=== PATIENT | female | born 1960 | race Caucasian/White ===

== ENCOUNTER 2016-11-13 09:20 | Day surgery (SDC) | payer OTHER ==
[~2016-11-13] VITALS: Ht 167.6 cm; Wt 53.0 kg
[~2016-11-13 09:20] MED LIST: 0.9% Sodium Chloride 1,000 ML IV SCH; ACLI400A2 IH; BECL8.7A6 INHALATION; ROPI0.5T2 PO; SALM50DI IH; Sodium Chloride LOK Flush 10 mL Syringe IV PRN; fentaNYL-PF 50 mCg/mL 2 mL Inj IVPUSH PRN
[2016-11-13 09:39] VITALS: BP 136/82; PULSE 66; RESP 16; O2SAT 97
[2016-11-13] MEDS ORDERED: MELO7.5O PO (09:39)
[2016-11-13] MEDS ORDERED: PRE10 PO (09:39)
--- NOTE | 2016-11-13 10:50 | PCM.ENDCOL ---
Colonoscopy Date of Service: Nov 13, 2016 Physician Toi Garcia MD Pre Procedure Diagnosis: Screening Post Procedure Dx & Findings: Polyp hemorrhoids distal proctitis Procedure Colonoscopy PROCEDURE IN DETAIL: Prep adequate Withdrawal time 12 minutes After unremarkable rectal examination the Olympus video colonoscope was inserted patient's anal canal and was advanced to cecum. Landmarks were identified including the ileocecal valve and appendiceal orifice. Scope was withdrawn systematically. Visualized colonic mucosa showed healthy shiny mucosa with normal healthy-appearing vasculature. In the ascending colon, there was a 1 mm polyp structure which was removed completing cold forceps. In the rectum, there were 2 polyps near the hemorrhoid. One was 1 cm polyp and the other one was about 6 mm polyp. Both were resected completely using hot snare. Also during retroflexion, we noted distal proctitis. The mucosa showed superficial ulceration and edema and redness. Biopsies obtained. In the rectum retroflexion was done which showed hemorrhoids. Anal canal was inspected carefully on the way out and hemorrhoids noted. Impression Polyps 3 status post complete removal. Largest polyp was 1 cm. Distal proctitis Hemorrhoids Recommendation Repeat colonoscopy 3 years Await biopsy Presedation Assessment Risks and Benefits Informed consent was obtained from the patient after all risks and benefits including but not limited to drug reaction, infection, pain, bleeding, perforation, as well as alternatives were discussed. Patient monitoring Continuous pulse oximetry, cardiac monitoring, blood pressure monitoring, IV access, and oxygen at 2L per nasal cannula. Periprocedural Fentanyl: Fentanyl 100mcg Incrementally Midazolam: Midazolam 4mg Incrementally Complications There were no periprocedural complications identified. Post Procedure Plan Post Procedure Recommendations 1. Restrict activities today. 2. Resume normal activities in the morning. 3. Resume medications. 4. Patient informed of normal post procedure side effects as bloating, drowsiness, blood streaking in the stool. 5. average risk CRCS. If colon polyps come back as: -Hyperplastic- can repeat colonoscopy in 10 years -Tubular adenoma- repeat colonoscopy in 5 years -Tubulovillous/villous adenoma- repeat colonoscopy in 3 years -If any dysplasia- return to clinic as soon as possible 6. Please don't hesitate to call me with any questions. Toi Garcia MD Nov 13, 2016 10:50
[2016-11-13 10:52] VITALS: BP 129/92; PULSE 79; RESP 15; O2SAT 98
[2016-11-13 11:02] VITALS: BP 127/73; PULSE 77; RESP 16; O2SAT 99
[2016-11-13 11:12] VITALS: BP 133/66; PULSE 76; RESP 16; O2SAT 98
--- NOTE | 2016-11-14 10:32 | PATH ---
SURGICAL PATHOLOGY Attending Physician:Toi Garcia M.D. CASE STATUS: Signed Out PATIENT NAME: GRACIELA MEIER PID: [id number] : 1960 DATE COLLECTED:11/13/2016 20:54 SPECIMEN: 1: Colon, Biopsy 2: Rectum, Biopsy 3: Rectum, Biopsy CLINICAL HISTORY: 1). ASCENDING COLON POLYP 2). RECTAL POLYP X2 3). RECTAL BIOPSY FINAL DIAGNOSIS: 1.ASCENDING COLON POLYP: CHRONIC INFLAMMATION WITH FOCAL MUCOSAL SCARRING CONSISTENT WITH PREVIOUS MUCOSAL INJURY. Negative for dysplasia and malignancy. 2.RECTAL POLYPS: TUBULAR ADENOMA INVOLVING ALL THREE BIOPSY FRAGMENTS. 3.RECTAL BIOPSY: CHANGES OF CHRONIC ACTIVE PROCTITIS WITH CRYPTITIS, CRYPT ABSCESSES, AND FOCAL ULCERATION (SEE COMMENT). Negative for dysplasia and malignancy. ICD10 K51.9 D12.8 NOTE: The changes present in part 3 are consistent with those of chronic inflammatory bowel disease, namely chronic ulcerative colitis. Clinical correlation is suggested. GROSS DESCRIPTION: The specimen is received in three formalin filled containers labeled with the patient's name. 1). The specimen is sublabeled "ascending colon polyp" and consists of 2 extremely tiny portions of tissue which aggregate to 0.1 x 0.1 x 0.1 CM. The specimen is entirely submitted in cassettes 1A. 2). The specimen is sublabeled "rectal polyp X2" and consists of 3 portions of tissue which aggregate to 0.6 x 0.5 x 0.5 CM. The specimen is entirely submitted in cassette 2A. 3). The specimen is sublabeled "rectal" and consists of 2 portions of tissue which aggregate to zero 0.2 x 0.2 x 0.2 CM. The specimen is entirely submitted in cassette 3A. 11/13/2016 [facility] MICRO DESCRIPTION: See diagnosis. ICD-9 CODES: CPT CODES: 1: 23347 2: 69721 3: 35432 Electronically Signed Out Tl Lemons MD [facility] [address], [place] [address] Technical component performed at [facility], [address], [place], [address]
== END 2016-11-13 23:59 | disposition home or self-care (01) ==
LOC: END 09:20
PROVIDERS: ATTEND Internal Medicine
DX: Z12.11 Encounter for screening for malignant neoplasm of colon (principal); D12.8 Benign neoplasm of rectum; K63.5 Polyp of colon; K62.89 Other specified diseases of anus and rectum; K64.9 Unspecified hemorrhoids; J44.9 Chronic obstructive pulmonary disease, unspecified; F17.210 Nicotine dependence, cigarettes, uncomplicated
CPT/HCPCS: 45380; 45385; 99153; G0500; J7030